=== PATIENT | female | born 1945 | race Caucasian/White ===

== ENCOUNTER 2019-01-28 09:27 | Emergency (ER) | payer MEDICARE ==
[2019-01-28 09:40] VITALS: BP 159/125
--- NOTE | 2019-01-28 09:52 | ER Report ---
History and Physical Time Seen By MD: 09:51 HPI/ROS CHIEF COMPLAINT: Code blue HISTORY OF PRESENT ILLNESS: Patient is a 73-year-old female with a history of being dialysis dependent, with abdominal catheter for PD in place. Patient received 3 rounds of epinephrine, Alen device was in place at time of arrival. Patient was asystolic throughout course. Patient did have a Jose Enrique airway in place which was immediately exchanged for a 7.5 endotracheal tube using a glyde scope. Patient was given calcium immediately at time of arrival due to history of being noncompliant on medication and history of peritoneal dialysis.. Patient's pupils were fixed and dilated, patient was absent, unresponsive with no spontaneous movements. REVIEW OF SYSTEMS: Unable to obtain due to patient's mental status Allergies: Coded Allergies: UNABLE TO OBTAIN (Unverified , 01/28/19) Physical Exam General Appearance: Unresponsive, Jose Enrique airway in place, Alen device in place, code blue in progress Eyes: Pupils fixed and dilated, nonreactive ENT, Mouth: Jose Enrique airway in place Respiratory: Bilateral breath sounds auscultated post intubation Cardiovascular: Asystole, pulseless Gastrointestinal: Nondistended, no ecchymosis or rigidity present Neurological: Unresponsive, no spontaneous movement, no gag reflex Skin: Cool, mottled Musculoskeletal: Obvious bony deformities or signs of trauma DIFFERENTIAL DIAGNOSIS: After history and physical exam differential diagnosis was considered for myocardial infarction, cardiac tampon, tension pneumothorax, trauma, stroke, hemorrhagic bleed, hypovolemic shock, cardiogenic shock, electrolyte abnormality Medical Decision Making ED Course/Re-evaluation ED Course Patient is a 73-year-old female with a history of dialysis, medication noncompliance here with cardiac arrest brought in by EMS with CPR in progress with Alen device in place. Patient arrived with a Jose Enrique airway in place which was exchanged for 7.5 endotracheal tube. Patient had no cardiac movement on bedside ultrasound, there are no signs of pneumothorax, cardiac tamponade, intra-abdominal bleeding. Patient remained asystolic, she was initially given an gram of calcium due to history of medication noncompliance on dialysis. Patient's pupils are fixed and dilated, there is no gag reflex, extremities were cool and Mottled .Time of expiration 942. Please see code report form for further details and medication administration. Decision to Disposition Date: Jan 28, 2019 Decision to Disposition Time: 09:53 Depart Departure Impression: Primary Impression: Cardiorespiratory arrest Condition: Disposition: MONICA JUNE DO Jan 28, 2019 09:51
== END 2019-01-28 10:30 | disposition expired ==
LOC: ER 09:55
DX: R09.2 Respiratory arrest (principal)
CPT/HCPCS: 31500; 92950; 99285; J0171; J3490

== ENCOUNTER → 2019-01-28 | Outpatient (CLI) | payer MEDICARE | LOC: AMB 09:08 | PROVIDERS: ATTEND Nurse Practitioner | DX: I46.9 Cardiac arrest, cause unspecified (principal) | CPT/HCPCS: A0425; A0433 ==